=== PATIENT | male | born 1970 ===

== ENCOUNTER → 2020-04-10 | Outpatient (CLI) | payer OTHER ==
--- NOTE | 2020-04-10 12:03 | KCIC ---
STUDY: MRI of the left shoulder without contrast INDICATION: Left shoulder pain. Limited range of motion. Injury 3 weeks prior. COMPARISON: Left shoulder radiographs 04/01/2020 TECHNIQUE: Multiplanar MR imaging of the left shoulder performed without the use of intravenous or intra-articular contrast. FINDINGS: AC joint: Minimal degenerative change at the AC joint. Alignment is normal. Mild edema/fluid signal within the subacromial subdeltoid bursa but not to the extent to suggest bursitis. Rotator cuff: Intact supraspinatus. Mildly thickened and heterogeneous infraspinatus at the footprint, image 11 series 6. No focal tear. The teres minor is intact. The subscapularis is intact. Normal rotator cuff muscular bulk and signal. Labrum: Probable subtle tear of the labrum from mid posterior to posterior/inferior given the presence of small paralabral cyst formation such as seen on axial images 13 and 14 series 3. Heterogeneity at the biceps-labral anchor but without a fluid signal tear defect. Long head biceps tendon: Intact and normally located however there is abnormal T2 signal elevation along the extra-articular long head biceps tendon extending beyond the inferior field of view such as seen on image 23 series 3. Cartilage: Intact. Bones: No acute fracture. Miscellaneous: Partially imaged edema/hemorrhage surrounding a heterogeneous hypointense structure anterior to the proximal humerus such as seen on image 23 series 6 and image 3 series 8. This is most compatible with pectoralis injury, favored the pectoralis major, but it is difficult to determine if a tear has occurred at the myotendinous junction or at the tendon insertion to the humerus. No large shoulder joint effusion. Mildly prominent axillary lymph node on image 21 series 7 is favored reactive and maintains a prominent fatty hilum. Impression: 1. Mildly thickened and heterogeneous infraspinatus tendon at the footprint could either be mild tendinosis or tendon contusion. No focal rotator cuff tear. 2. Partially imaged edema/hemorrhage surrounding what appears to be the pectoralis major tendon, such as seen on image 23 series 6, compatible with a tear but it is difficult to discern if this is occurring at its humeral attachment or myotendinous junction. Correspondingly there is mild edema/hemorrhage along the extraarticular long head biceps tendon. The long head biceps remain intact and normally located. Recommend correlation for pectoralis dysfunction. 3. Subtle tear of the labrum from mid posterior to posterior/inferior given the presence of a small paralabral cyst (images 13 and 14 series 3). Electronically signed by: FABIÁN BARROW MD (04/10/2020 12:00 PM) [id number]
== END | disposition home or self-care (01) ==
LOC: KCIC MRI 07:55
PROVIDERS: ATTEND Orthopaedic Surgery
DX: S43.402A Unspecified sprain of left shoulder joint, initial encounter (principal); X58.XXXA Exposure to other specified factors, initial encounter; Y93.89 Activity, other specified; Y92.89 Other specified places as the place of occurrence of the external cause; Y99.8 Other external cause status
CPT/HCPCS: 73221